=== PATIENT | female | born 1970 | race African-American/Black ===

== ENCOUNTER 2016-09-23 17:28 | Emergency (ER) | payer MEDICAID ==
[2016-09-23 18:45] VITALS: BP 130/61; PULSE 66; TEMP 98.1; BMI 33.3
--- NOTE | 2016-09-23 18:49 | EDPRACDOC ---
- General Information Stated Complaint: VAGINAL BURNING ITCHING Time Seen by Provider: 09/23/16 18:33 Information Source: Patient Mode Of Arrival: Car Home Medications: Home Medications Alprazolam [Xanax] 0.5 - 1 mg PO Q8H 07/30/13 Bupropion HCl [Wellbutrin Xl] 300 mg PO DAILY 07/30/13 Losartan/Hydrochlorothiazide [Losartan-Hctz 100-25 mg Tab] 1 each PO DAILY #0 11/28/14 Methyl Salicylate/Menth/Camph [Salonpas Patch] 2 each TP 5XD PRN 11/28/14 Multivitamin [One Daily Multivitamin] 1 each PO DAILY 11/28/14 Cholecalciferol (Vitamin D3) [Vitamin D3] 5,000 unit PO DAILY 06/28/15 Cyclobenzaprine HCl [Flexeril] 10 mg PO TID PRN #20 tablet 06/28/15 Ketorolac Tromethamine [Toradol] 10 mg PO Q6H PRN #20 tab 06/28/15 Oxycodone HCl [Roxicodone] 5 mg PO QID 06/28/15 Ketorolac Tromethamine 10 mg PO Q6H PRN #20 tab 10/03/15 Prednisone [Deltasone, Orasone] 1 tab PO DAILY #10 tablet 10/03/15 Ciprofloxacin HCl [Cipro] 500 mg PO BID #20 tab 06/22/16 Phenazopyridine HCl [Pyridium] 200 mg PO TID #7 tablet 06/22/16 Ciprofloxacin HCl [Cipro] 500 mg PO BID #14 tab 09/23/16 Permethrin 60 gm TP DAILY #60 cream..g. 09/23/16 Permethrin [NIX (for HAIR treatment of head lice)] 60 ml TOP DAILY #1 bot Allergies/Adverse Reactions: Allergies Allergy/AdvReac Type Severity Reaction Status Date / Time Penicillins Allergy Unknown Unknown/See Verified 06/22/16 17:45 Comments Sulfa (Sulfonamide Allergy Unknown Edema-Oral/ Verified 06/22/16 17:45 Antibiotics) Lip gabapentin Allergy Edema-Gener Verified 06/22/16 17:45 alized - History of Present Illness Onset: days HPI: Pt states she stayed at a hotel and since has had itching over entire body. C/o white specks in hair, vaginal itching and discharge. Denies fever, cough, congestion, cp, sob, abd pain, changes in bowel or bladder. Rash Location: Reports: Generalized Quality: Reports: Pruritic Known Exposure To: Reports: Other (bedbugs) Relevant History of: Reports: None Pain Severity: None Associated Signs and Symptoms: Reports: None ED Past Medical History - History Reviewed Yes Nurses notes reviewed and agree except as marked - Patient Medical History Cardiac History: Reports: Hypertension Psychological History: Reports: Depression - Social Medical History Smoking Status: Heavy tobacco smoker (5 or more cigarettes/day or daily pipe/ cigar) ETOH: None Substance Abuse: None EDM Review of Systems - Review of Systems Constitutional: No Symptoms Reported. negative: Fever, Chills, Weakness, Fatigue, Loss of Appetite Ears: No Symptoms Reported. negative: Pain, Hearing Loss, Drainage, Ear Pulling Throat: No Symptoms Reported. negative: Pain, Swelling Nose: No Symptoms Reported. negative: Congestion, Bleeding, Discharge, Injection, Swelling, Deformity, Ecchymosis, Tender, Abrasion, Laceration Mouth: No Symptoms Reported. negative: Pain, Drooling Respiratory: No Symptoms Reported. negative: Cough, Brassy Cough, Barky Cough, Shortness of Breath, Wheezing, Hemoptysis Cardiovascular: No Symptoms Reported. negative: Chest Pain, Palpitations, Syncope, Edema, Orthopnea, PND, Skin Mottling, Cyanosis Gastrointestinal: No Symptoms Reported. negative: Pain, Constipation, Nausea, Vomiting, Diarrhea, Melena, Formula Intolerance Genitourinary: Discharge. negative: No Symptoms Reported, Bleeding, Dysuria, Frequency, Hematuria, , Testicular Pain Neurological: No Symptoms Reported. negative: Headache, Dizziness, Seizure, Numbness, Weakness, Speech Difficulty, Gait Difficulty Musculoskeletal: No Symptoms Reported. negative: Neck, Chestwall, Ribs, Back, Shoulder, Arm, Elbow, Forearm, Wrist, Hand, Pelvis, Hip, Femur, Knee, Leg, Ankle , Foot Integumentary: Itching Allergic/Immunologic: Itching Hematologic: No Symptoms Reported. negative: Lymphadenopathy, Easy Bruising, Easy Bleeding Psychiatric: No Symptoms Reported. negative: Anxiety, Depression, Hallucinations, Insomnia, Suicidal - Physical Exam Constitutional: Alert Oriented to: Time, Person, Place Last recorded Vital Signs: Last Vital Signs Temp 98.1 F 09/23/16 18:43 Pulse 66 09/23/16 18:43 Resp 18 09/23/16 18:43 BP 130/61 09/23/16 18:43 Pulse Ox 99 09/23/16 18:43 Oxygen Pulse Oxygen Saturation 99 O2 Device Room Air Oxygen Flow Rate Fraction of Inspired Oxygen ( FIO2) - HEENT Head: Normal ( normocephalic) Eye Exam: Normal (PERRL, EOMI, Sclera white) Oropharynx: Normal (Pharynx:Moist without exudate,Gums-no swelling) Tympanic Membrane: Normal ENT EAC: Normal TMJ: Normal Nose: No Symptoms Reported (septum midline) Neck: Normal (FROM, trachea at midline) HEENT Comment: jackeline in scalp hair, no adult pediculosis visualized - Respiratory/Cardiovascular Respiratory: Normal - CTA (BBS clear to auscultation without adventitious sounds ) Cardiovascular: Normal (RRR without murmur, gallop or rub) - GI Auscultation: Normal (NABS) Palpation: Normal (Soft,No rebound or guarding, non distended) Tenderness: Non tender - Bladder: Normal External: Red Vagina: Discharge Cervix: Discharge - Musculoskeletal Back: Normal (Non-Tender) Extremities: Normal (Normal tone, Pulses 2+ No cyanosis or edema, FROM) - Integumentary Skin: Normal, Warm, Dry Lymphatics: Normal (no adenopathy) - Neurologic Memory Impaired: Normal Motor Function: Normal (Normal tone, Pulses 2+ No cyanosis or edema, FROM) Mood Description: Normal - Differential Diagnosis Other (uti, vaginitis), Candidiasis, Contact dermatitis, Pediculosis (lice), Scabies - Results 09/23/16 19:30 Laboratory Results - last 24 hr 09/23/16 09/23/16 19:00 19:00 Urine Color Yellow Urine Clarity Sl cldy Urine pH 5.0 Ur Specific [place] 1.030 Urine Protein Neg Urine Glucose (UA) Neg Urine Ketones Neg Urine Occult Blood Neg Urine Nitrite Neg Urine Bilirubin Neg Urine Urobilinogen <2.0 Ur Leukocyte Esterase 1+ H Urine RBC 2-5 Urine WBC 20-30 H Ur Epithelial Cells 2+ Urine Bacteria Few Urine Mucus Occ Urine Test Neg Microbiology 09/23/16 19:00 Vaginal EDITH Preparation - Final 09/23/16 19:00 Vaginal Trichomonas Wet [place] - Final Decision Time to Discharge: 19:31 - Departure Disposition: Home Condition: Good Final Diagnosis: Scabies exposure, Head lice infestation UTI (urinary tract infection) Qualifiers: Urinary tract infection type: acute cystitis Hematuria presence: without hematuria Qualified Code(s): N30.00 - Acute cystitis without hematuria Instructions: Urinary Tract Infection in Women (ED), Dysuria, Scabies (ED), Pediculosis (ED) Education/Counseling Given To: Patient Education/Counseling Given Regarding: Diagnosis, Treatment, Follow Up Referrals: Elvin Hills MD [Primary Care Provider] - One Week Prescriptions: New Ciprofloxacin HCl [Cipro] 500 mg PO BID #14 tab Permethrin 60 gm TP DAILY #60 cream..g. Permethrin [NIX (for HAIR treatment of head lice)] 60 ml TOP DAILY #1 bot No Action Bupropion HCl [Wellbutrin Xl] 300 mg PO DAILY Alprazolam [Xanax] 0.5 - 1 mg PO Q8H Multivitamin [One Daily Multivitamin] 1 each PO DAILY Methyl Salicylate/Menth/Camph [Salonpas Patch] 2 each TP 5XD PRN PRN Reason: Pain Losartan/Hydrochlorothiazide [Losartan-Hctz 100-25 mg Tab] 1 each PO DAILY # 0 Oxycodone HCl [Roxicodone] 5 mg PO QID Cholecalciferol (Vitamin D3) [Vitamin D3] 5,000 unit PO DAILY Cyclobenzaprine HCl [Flexeril] 10 mg PO TID PRN #20 tablet PRN Reason: Muscle Spasms Ketorolac Tromethamine [Toradol] 10 mg PO Q6H PRN #20 tab PRN Reason: Pain Prednisone [Deltasone, Orasone] 1 tab PO DAILY #10 tablet Ketorolac Tromethamine 10 mg PO Q6H PRN #20 tab PRN Reason: Pain Ciprofloxacin HCl [Cipro] 500 mg PO BID #20 tab Phenazopyridine HCl [Pyridium] 200 mg PO TID #7 tablet Additional Instructions: Clean all bedding and clothing, treat entire house.
[2016-09-23 19:24] LABS: LEUKOCYTES/URINE 1+ (NEGATIVE); NITRITE/URINE NEG (NEGATIVE); URINE OCCULT BLOOD NEG (NEG/TRACE); WBC/URINE 20-30 (0-5)
[2016-09-25 21:40] LABS: CHLAMY BY NUCLEIC ACID AMP Negative (Negative)
[2016-09-26 07:58] LABS: GC BY NUCLEIC ACID AMP Negative (Negative)
== END 2016-09-23 19:43 | disposition home or self-care (01) ==
LOC: EDMC 17:28
DX: N30.00 Acute cystitis without hematuria (principal); B85.0 Pediculosis due to Pediculus humanus capitis
CPT/HCPCS: 81001; 81025; 87210; 87220; 87491; 87591; 99282